=== PATIENT | male | born 1945 | race Caucasian/White ===

== ENCOUNTER 2018-11-08 08:36 | Observation (INO) | payer MEDICARE ==
[~2018-11-08] VITALS: Ht 177.8 cm; Wt 106.6 kg
--- NOTE | 2018-11-08 08:37 | ER Report ---
History and Physical Time Seen By MD: 08:37 HPI/ROS CHIEF COMPLAINT: Shortness of breath, hypoxia HISTORY OF PRESENT ILLNESS: Patient is a 73-year-old male here with complaints of shortness breath, found to be profoundly hypoxic in the 60s. Patient is originally from [place] however is traveling out here to visit his son at the [place]. Patient reportedly flew into [place] several days ago but only developed significant shortness of breath while driving from [place] to [place]. Patient did have a prior history of a similar episode in the remote past. Denies history of smoking, CHF, COPD. Denies recent history of cough, cold symptoms. REVIEW OF SYSTEMS: Constitutional: No fever, no chills. Eyes: No discharge. ENT: No sore throat. Cardiovascular: No chest pain, no palpitations. Respiratory:+ shorytness of breath at rest Gastrointestinal: No abdominal pain, no vomiting. Genitourinary: No hematuria. Musculoskeletal: No back pain. Skin: No rashes. Neurological: No headache. Allergies: Coded Allergies: No Known Allergies (Verified Allergy, Unknown, 11/08/18) Home Meds Active Scripts Doxycycline Hyclate (DOXYCYCLINE HYCLATE) 100 Mg Tablet, 100 MG PO BID for 7 Days, #14 TAB Prov:SONJA VAUGHAN DO 11/09/18 Cefdinir 300 Mg Cap (OMNICEF 300 MG CAP (OR EQUIV)) 300 Mg Cap, 300 MG PO BID for 7 Days, #20 CAP Prov:PRUITT DESTINEESONJA 11/09/18 Reported Medications Simvastatin (SIMVASTATIN) 40 Mg Tablet, 40 MG PO HS, TAB 11/08/18 Flecainide Acetate (FLECAINIDE ACETATE) 150 Mg Tablet, 150 MG PO BID 11/08/18 Benazepril Hcl (BENAZEPRIL HCL) 20 Mg Tab, 20 MG PO BID, TAB 11/08/18 Metoprolol Succinate (METOPROLOL SUCCINATE) 50 Mg Tab.er.24h, 2 TAB PO QDAY, TAB 11/08/18 Constitutional Physical Exam General Appearance: The patient is alert, has no immediate need for airway protection and no signs of toxicity. Uncomfortable appearing Eyes: Pupils equal and round no pallor or injection. ENT, Mouth: Mucous membranes are moist. Respiratory: + significant work of breathing, diminished BS b/l with crackles at bases Cardiovascular: Regular rate and rhythm. Gastrointestinal: Abdomen is soft and non tender, no masses, bowel sounds normal. Neurological: No focal deficits Skin: Warm and dry, no rashes. Musculoskeletal: Neck is supple non tender. Extremities are nontender, nonswollen and have full range of motion. DIFFERENTIAL DIAGNOSIS: After history and physical exam differential diagnosis was considered for shortness of breath including but not limited to pulmonary infectious process, COPD, asthma, pulmonary embolus and congestive heart failure. Medical Decision Making Data Points Laboratory Hematology Test 11/08/18 08:59 D-Dimer Quantitative (PE/DVT) 1.29 ug/ml (0-0.50) Blood Gas Patient Temperature 98.1 DEGREES Venous Blood pH 7.30 (7.31-7.41) Venous Blood Partial Pressure CO2 41 mmHg Venous Blood Partial Pressure O2 54 mmHg Venous Blood HCO3 24 mmol/L Venous Blood Oxygen Saturation 88 % Venous Blood Base Excess -1 mmol/L Oxygen Liters/Minute 4liters Chemistry Test 11/08/18 08:59 D-Dimer Quantitative (PE/DVT) 1.29 ug/ml (0-0.50) Blood Gas Patient Temperature 98.1 DEGREES Venous Blood pH 7.30 (7.31-7.41) Venous Blood Partial Pressure CO2 41 mmHg Venous Blood Partial Pressure O2 54 mmHg Venous Blood HCO3 24 mmol/L Venous Blood Oxygen Saturation 88 % Venous Blood Base Excess -1 mmol/L Oxygen Liters/Minute 4liters Coagulation Test 11/08/18 08:59 D-Dimer Quantitative (PE/DVT) 1.29 ug/ml EKG/Imaging Imaging PATIENT NAME: Lan Fraga : 1945 MR: [id number] V: [id number] EXAM DATE: ORDERING PHYSICIAN: STACY RIZO TECHNOLOGIST: Location: [facility] Patient: Lan Fraga : 1945 Visit/Account:[id number] Date of Sevice: 11/08/2018 CT angiogram chest with contrast Indication: Short of breath., elevated dimer, hypoxia Comparison: None available. Technique: Axial CT images are obtained through the chest after administration of 90 mL Isovue 370 IV contrast. Reformatted coronal and sagittal images were reviewed as well as coronal MIP images. One of the following dose optimization techniques was utilized in the performance of this exam: automated exposure control; adjustment of the mA and/or kV according to patient size; or use of iterative reconstruction technique. Specific details can be referenced in the facility?s radiology CT exam operational policy. FINDINGS: There is mild enlargement of the heart. Extensive coronary arterial calcificat ions are present. And aortic valve calcifications are noted. There is no filling defect seen within the pulmonary arterial system. In lung windows, there are patchy alveolar opacities present within the upper lobes bilaterally There are small bilateral pleural effusions present with associated atelectasis There is a small moderate hiatal hernia present. Visualized thoracic spine is unremarkable. The vertebral body heights are well maintained. No acute alignment abnormality The gallbladder is surgically absent. IMPRESSION: 1. No evidence of pulmonary embolus. 2. Patchy alveolar opacities present within the upper lobes bilaterally. Blastic considerations are infectious versus inflammatory process. 3. Small bilateral pleural effusions ED Course/Re-evaluation ED Course Patient is a 73-year-old male here from out of town with profound shortness breath while driving from [place] to [place]. Patient was found to have bilateral patchy opacities in the lung mcmanus with diminished breath sounds, severe hypoxia at time of arrival as confirmed with CT imaging. Patient likely had a component of altitude-related pulmonary edema, CHF exacerbation. I discussed the patient with the on-call hospitalist who admitted for further t reatment and care. Patient was stable at time of admission. Decision to Disposition Date: Nov 08, 2018 Decision to Disposition Time: 10:56 Depart Departure Latest Vital Signs Impression: Primary Impression: Dyspnea Additional Impression: Hypoxia Condition: Improved Disposition: Admitted from ER New Scripts Doxycycline Hyclate (DOXYCYCLINE HYCLATE) 100 Mg Tablet 100 MG PO BID for 7 Days, #14 TAB Prov: SONJA VAUGHAN DO 11/09/18 Cefdinir 300 Mg Cap (OMNICEF 300 MG CAP (OR EQUIV)) 300 Mg Cap 300 MG PO BID for 7 Days, #20 CAP Prov: SONJA VAUGHAN DO 11/09/18 Problem Qualifiers STACY RIZO DO Nov 08, 2018 08:37
[2018-11-08 09:13] LABS: PLATELET COUNT, AUTOMATED 142 K/uL (150-450)
--- NOTE | 2018-11-08 09:24 | RADIOLOGY IMAGING REPORT ---
FACILITY: [facility] - [place] PATIENT NAME: Lan Fraga : 1945 MR: [id number] V: [id number] EXAM DATE: ORDERING PHYSICIAN: STACY RIZO TECHNOLOGIST: Location: [facility] [place] Patient: Lan Fraga : 1945 Visit/Account:[id number] Date of Sevice: 11/08/2018 CHEST PA LAT INDICATION: RESP DISTRESS COMPARISON: None available FINDINGS: Heart size within normal limits. Central airway thickening is present. There are hazy alveolar opacities present within the right uppe r lobe. Mildly increased interstitial prominence is noted within the right lower lobe. There is no pneumothorax or pleural effusion. IMPRESSION: 1. Hazy predominantly alveolar opacities and central airway thickening are present. Findings may repr esent infectious or inflammatory pneumonitis Report Dictated By: Ventura Womack at 11/08/2018 9:18 AM Report E-Signed By: Ventura Womack at 11/08/2018 9:19 AM WSN:[id number]
--- NOTE | 2018-11-08 09:47 | EKG ---
FACILITY: [facility] - [place] PATIENT NAME: HERMANN OMER : [id number] MR: [id number] V: [id number] EXAM DATE: ORDERING PHYSICIAN: STACY RIZO TECHNOLOGIST: Test Reason : SOB Blood Pressure : / mmHG Vent. Rate : 059 BPM Atrial Rate : 059 BPM P-R Int : 184 ms QRS Dur : 124 ms QT Int : 484 ms P-R-T Axes : 077 036 023 degrees QTc Int : 479 ms Sinus bradycardia Nonspecific interventricular conduction delay Artifact in several leads - repeat if needed No previous ECGs available Confirmed by POORNIMA GONZALEZ ([id number]) on 11/08/2018 12:28:17 PM Referred By: Confirmed By:POORNIMA GONZALEZ
[2018-11-08] MEDS ORDERED: NS(*) 0.9% 50 ML BAG 50 ML ONE (10:05)
[2018-11-08] MEDS ORDERED: IOPAMIDOL 76% 150 ML INFUS BTL 150 ML ONE (10:05)
--- NOTE | 2018-11-08 10:47 | RADIOLOGY IMAGING REPORT ---
FACILITY: [facility] [place] PATIENT NAME: Lan Fraga : 1945 MR: [id number] V: [id number] EXAM DATE: ORDERING PHYSICIAN: STACY RIZO TECHNOLOGIST: Location: [facility] Patient: Lan Fraga : 1945 Visit/Account:[id number] Date of Sevice: 11/08/2018 CT angiogram chest with contrast Indication: Short of breath., elevated dimer, hypoxia Comparison: None available. Technique: Axial CT images are obtained through the chest after administration of 90 mL Isovue 370 IV contrast. Reformatted coronal and sagittal images were reviewed as well as coronal MIP images. One of the following dose optimization techniques was utilized in the performance of this exam: auto mated exposure control; adjustment of the mA and/or kV according to patient size; or use of iterative reconstruction technique. Specific details can be referenced in the facility?s radiology CT exam ope rational policy. FINDINGS: There is mild enlargement of the heart. Extensive coronary arterial calcifications are present. And a ortic valve calcifications are noted. There is no filling defect seen within the pulmonary arterial system. In lung windows, there are patchy alveolar opacities present within the upper lobes bilaterally There are small bilateral pleural effusions present with associated atelectasis There is a small moderate hiatal hernia present. Visualized thoracic spine is unremarkable. The vertebral body heights are well maintained. No acute a lignment abnormality The gallbladder is surgically absent. IMPRESSION: 1. No evidence of pulmonary embolus. 2. Patchy alveolar opacities present within the upper lobes bilaterally. Blastic considerations are i nfectious versus inflammatory process. 3. Small bilateral pleural effusions Report Dictated By: Ventura Womack at 11/08/2018 10:31 AM Report E-Signed By: Ventura Womack at 11/08/2018 10:43 AM WSN:[id number]
[2018-11-08 12:48] VITALS: BP 153/92
[2018-11-08] MEDS ORDERED: ACETAMINOPHEN 325 MG TAB PO PRN (13:05)
[2018-11-08] MEDS ORDERED: INSULIN HUM LISPRO 100 UN/ML 3 ML VIAL SUBQ PRN (13:05)
[2018-11-08] MEDS ORDERED: FLUSH 10 ML SYR IVP PRN (13:05)
[2018-11-08] MEDS ORDERED: BENA20TA64 PO (13:11)
[2018-11-08] MEDS ORDERED: SIMV-54 PO (13:11)
[2018-11-08] MEDS ORDERED: FLEC150T14 PO (13:11)
[2018-11-08] MEDS ORDERED: METO50TA19 PO (13:11)
--- NOTE | 2018-11-08 13:28 | History & Physical ---
History of Present Illness Chief Complaint Short of breath History of Present Illness 73yo male with PMHx significant for type 2 DM, atrial fibrillation on flecainide, HTN. He lives in [place] and flew to [place], [place] ([address]ft) 2 days ago and then drove to [place], [place] ([address]ft). He states he had increasing dyspnea with decreased activity tolerance through the day on the drive to [place]. He had a slight cough without sputum. No fevers/chills. No CP, heart racing, or palpitations. No orthopnea/PND. No edema. No leg pain. No GI/ complaints. He was evaluated in the ER and found to be hypoxic with normal WBC, no fever, elevated BNP, normal troponin, elevated d-dimer. His CT pulmonary angiogram shows bilateral patchy infiltrates. No PE were seen. EKG shows sinus bradycardia, but no acute appearing ST-T findings. He was recommended for a dmission. History Problems: (1) Atrial fibrillation Status: Chronic (2) HTN (hypertension) Status: Chronic (3) Type 2 diabetes mellitus Status: Chronic (4) History of knee replacement procedure of right knee (5) History of knee replacement procedure of left knee (6) History of cholecystectomy Home Meds Reported Medications Simvastatin (SIMVASTATIN) 40 Mg Tablet, 40 MG PO HS, TAB 11/08/18 Flecainide Acetate (FLECAINIDE ACETATE) 150 Mg Tablet, 150 MG PO BID 11/08/18 Benazepril Hcl (BENAZEPRIL HCL) 20 Mg Tab, 20 MG PO BID, TAB 11/08/18 Metoprolol Succinate (METOPROLOL SUCCINATE) 50 Mg Tab.er.24h, 2 TAB PO QDAY, TAB 11/08/18 Allergies: Coded Allergies: No Known Allergies (Verified Allergy, Unknown, 11/08/18) Patient History: FH: HTN (hypertension) MOTHER FH: dementia FATHER Hx Alcohol Use: No Hx Substance Use Disorder: No Review of Systems Constitutional: No Fever, No Chills, No Night Sweats Neurological: Weakness; No Syncope Eyes: No Vision Change, No Loss of Vision ENT: No Hearing Loss Cardiovascular: No Chest Pain, No Palpitations Respiratory: Shortness of Breath, Cough; No Wheezing Gastrointestinal: No Nausea, No Vomiting, No Diarrhea, No Hematemesis, No Hematochezia, No Melena, No Abdominal Pain Genitourinary: No Dysuria, No Hematuria Musculoskeletal: No Pain Psychiatric: No Depression Exam Vital Signs Vital Signs Date Time Temp Pulse Resp B/P (MAP) Pulse Ox O2 Delivery O2 Flow Rate FiO2 11/08/18 12:48 52 153/92 (112) 95 Nasal Cannula 4.0 11/08/18 11:46 12 11/08/18 08:48 99.5 General Appearance: Alert, Awake Neuro: No Gross deficits Eyes: PERRLA ENT: Oropharynx Clear Neck: No Masses Cardiovascular: Other (Regular slightly bradycardic no murmur no S3 or S4 noted) Respiratory: Other (few fine rales midlung mcmanus bilaterally/no wheezes) Chest: No Tenderness GI: Abd Soft and Non-Tender (obese/BS present) : No CVA Tenderness Lymph: No Adenopathy Extremities: Warm, Perfused, Other (no significant edema noted/negative Alma's bilaterally) Integumentary: Other (no skin lesions noted) Psych: Alert & Oriented X3 Medical Decision Making Data Points Result Diagram: 11/08/18 0859 11/08/18 0859 Item Value Date Time Albumin 4.0 g/dl 11/08/18 0859 Total Protein 7.0 g/dl 11/08/18 0859 B-Type Natriuretic Peptide 390 pg/ml H 11/08/18 0859 Troponin I < 0.012 ng/ml 11/08/18 0859 Alkaline Phosphatase 69 U/L 11/08/18 0859 Alanine Aminotransferase (ALT/SGPT) 29 U/L 11/08/18 0859 Aspartate Amino Transf (AST/SGOT) 22 U/L 11/08/18 0859 Total Bilirubin 1.4 mg/dl H 11/08/18 0859 Calcium Level 8.6 mg/dl 11/08/18 0859 D-Dimer Quantitative (PE/DVT) 1.29 ug/ml H 11/08/18 0859 Oxygen Liters/Minute 4liters 11/08/18 0859 Venous Blood Base Excess -1 mmol/L 11/08/18 0859 Venous Blood Oxygen Saturation 88 % 11/08/18 0859 Venous Blood HCO3 24 mmol/L 11/08/18 0859 Venous Blood Partial Pressure O2 54 mmHg 11/08/18 0859 Venous Blood Partial Pressure CO2 41 mmHg 11/08/18 0859 Venous Blood pH 7.30 L 11/08/18 0859 Blood Gas Patient Temperature 98.1 DEGREES 11/08/18 0859 EKG / Imaging EKG Interpretation PATIENT NAME: HERMANN FRAGA : [id number] MR: [id number] V: [id number] EXAM DATE: ORDERING PHYSICIAN: STACY RIZO TECHNOLOGIST: Test Reason : SOB Blood Pressure : / mmHG Vent. Rate : 059 BPM Atrial Rate : 059 BPM P-R Int : 184 ms QRS Dur : 124 ms QT Int : 484 ms P-R-T Axes : 077 036 023 degrees QTc Int : 479 ms Sinus bradycardia Nonspecific interventricular conduction delay Artifact in several leads - repeat if needed No previous ECGs available Confirmed by POORNIMA GONZALEZ ([id number]) on 11/08/2018 12:28:17 PM Referred By: Confirmed By:POORNIMA GONZALEZ Imaging PATIENT NAME: Hermann Fraga : 1945 MR: [id number] V: [id number] EXAM DATE: [id number] ORDERING PHYSICIAN: STACY RIZO TECHNOLOGIST: Location: [facility] [place] Patient: Hermann Fraga : 1945 Visit/Account:[id number] Date of Sevice: 11/08/2018 CT angiogram chest with contrast Indication: Short of breath., elevated dimer, hypoxia Comparison: None available. Technique: Axial CT images are obtained through the chest after administration of 90 mL Isovue 370 IV contrast. Reformatted coronal and sagittal images were reviewed as well as coronal MIP images. One of the following dose optimization techniques was utilized in the performance of this exam: automated exposure control; adjustment of the mA and/or kV according to patient size; or use of iterative reconstruction technique. Specific details can be referenced in the facility?s radiology CT exam operational policy. FINDINGS: There is mild enlargement of the heart. Extensive coronary arterial calcifications are present. And aortic valve calcifications are noted. There is no filling defect seen within the pulmonary arterial system. In lung windows, there are patchy alveolar opacities present within the upper lobes bilaterally There are small bilateral pleural effusions present with associated atelectasis There is a small moderate hiatal hernia present. Visualized thoracic spine is unremarkable. The vertebral body heights are well maintained. No acute alignment abnormality The gallbladder is surgically absent. IMPRESSION: 1. No evidence of pulmonary embolus. 2. Patchy alveolar opacities present within the upper lobes bilaterally. Blastic considerations are infectious versus inflammatory process. 3. Small bilateral pleural effusions Report Dictated By: Ventura Womack at 11/08/2018 10:31 AM Report E-Signed By: Ventura Womack at 11/08/2018 10:43 AM WSN:[id number] PATIENT NAME: Hermann Fraga : 1945 MR: [id number] V: [id number] EXAM DATE: ORDERING PHYSICIAN: STACY RIZO TECHNOLOGIST: Location: [facility] [place] Patient: Hermann Fraga : 1945 Visit/Account:[id number] Date of Sevice: 11/08/2018 CHEST PA LAT INDICATION: RESP DISTRESS COMPARISON: None available FINDINGS: Heart size within normal limits. Central airway thickening is present. There are hazy alveolar opacities present within the right upper lobe. Mildly increased interstitial prominence is noted within the right lower lobe. There is no pneumothorax or pleural effusion. IMPRESSION: 1. Hazy predominantly alveolar opacities and central airway thickening are present. Findings may represent infectious or inflammatory pneumonitis Report Dictated By: Ventura Womack at 11/08/2018 9:18 AM Report E-Signed By: Ventura Womack at 11/08/2018 9:19 AM WSN:[id number] Assessment and Plan Problems: (1) Hypoxia Status: Acute Assessment & Plan: It appears he has pulmonary edema. Clinically, he does not appear to have pneumonia, but it is still a possibility. He could have primary cardiac etiology, but he may also have high altitude pulmonary edema as he came up in [place] 7000ft very quickly (and actually went over 8800ft on his trip into [place]). Will admit, place on oxygen, check serial troponins, monitor, control BP, check echocardiogram. Plan on re-check CXR in 6-8 hours to see if infiltrates changing/resolving. Discussed all of this with the patient and his . They seem to understand very well. (2) Dyspnea Status: Acute Assessment & Plan: Appears to be due to pulmonary edema, suspect high-altitude edema may be the cause. Will evaluate/treat as noted above. (3) Atrial fibrillation Status: Chronic Assessment & Plan: He is in sinus rhythm. It sounds like he has been maintaining sinus rhythm very well on the flecainide. Will watch on monitor. He has not been on anticoagulation "for a long time now". He is on metoprolol for rate control and HTN. (4) HTN (hypertension) Status: Chronic Assessment & Plan: Will continue his benazepril and metoprolol. Watch closely. (5) Type 2 diabetes mellitus Status: Chronic Assessment & Plan: ADA diet, continue his metformin. Watch glucoses and use SSI as needed. Venous Thromboembolism Antithrombotics Is Pt On Any Antithrombotics?: Yes Exam Sepsis Risk: No Definite Risk POORNIMA GONZALEZ MD Nov 08, 2018 13:28
[2018-11-08 15:09] VITALS: BP 151/83
[2018-11-08] MEDS ORDERED: NS(*) 0.9% 1000 ML BAG 1,000 ML IV PRN (15:45)
--- NOTE | 2018-11-08 15:56 | EKG ---
FACILITY: [facility] PATIENT NAME: HERMANN OMER : [id number] MR: [id number] V: [id number] EXAM DATE: ORDERING PHYSICIAN: POORNIMA GONZALEZ TECHNOLOGIST: UNA Arellano Reason : Blood Pressure : / mmHG Vent. Rate : 058 BPM Atrial Rate : 058 BPM P-R Int : 204 ms QRS Dur : 116 ms QT Int : 494 ms P-R-T Axes : 079 061 031 degrees QTc Int : 484 ms Sinus bradycardia Nonspecific interventricular conduction delay Prolonged QT Abnormal ECG When compared with ECG of 08-NOV-2018 08:46, No significant change was found Confirmed by POORNIMA GONZALEZ ([id number]) on 11/09/2018 5:27:05 AM Referred By: LISA Confirmed By:POORNIMA GONZALEZ
[2018-11-08 18:48] VITALS: BP 163/90
--- NOTE | 2018-11-08 19:05 | RADIOLOGY IMAGING REPORT ---
FACILITY: [facility] PATIENT NAME: Lan Fraga : 1945 MR: [id number] V: [id number] EXAM DATE: ORDERING PHYSICIAN: POORNIMA GONZALEZ TECHNOLOGIST: Location: [facility] Patient: Lan Fraga : 1945 Visit/Account:[id number] Date of Sevice: 11/08/2018 CHEST SINGLE AP HISTORY: Shortness of breath. COMPARISON: 11/08/2018 at 9:09 AM. FINDINGS: Lines/tubes: None. Lungs/pleura: Stable hazy opacities in the lungs. No pneumothorax. Heart: Negative. Mediastinum: Negative. Bony structures/body wall: Negative. IMPRESSION: Stable hazy opacities in the lungs. Report Dictated By: Sundar Gomez MD at 11/08/2018 6:59 PM Report E-Signed By: Sundar Gomez MD at 11/08/2018 7:01 PM WSN:[id number]
[2018-11-08] MEDS ORDERED: diphenhydrAMINE 25 MG CAP PO PRN (20:30)
[2018-11-08] MEDS ORDERED: LEVALBUTEROL 0.63 MG/3 ML NEB NEB PRN (20:30)
[2018-11-08] MEDS ORDERED: MELATONIN 3 MG TAB PO PRN (20:30)
[2018-11-08] MEDS ORDERED: FUROSEMIDE 20 MG/2 ML VIAL IVP ONE (20:35)
[2018-11-08] MEDS: BENAZEPRIL HCL 20 MG TAB PO SCH (20:44)
[2018-11-08] MEDS: FLECAINIDE ACETATE 100 MG TAB PO SCH (20:46)
[2018-11-08] MEDS ORDERED: cefTRIAXone 1 GM VIAL IVP SCH (21:00)
[2018-11-08] MEDS ORDERED: SIMVASTATIN 40 MG TAB PO SCH (21:00)
[2018-11-08] MEDS ORDERED: NS 0.9% ONE (21:13)
[2018-11-08] MEDS ORDERED: NS(*) 0.9% 250 ML BAG 250 ML ONE (21:16)
[2018-11-08] MEDS: DOXYCYCLINE HYCL 100 MG VIAL 100 MG in NS(*) 0.9% 250 ML BAG 250 ML IV SCH (22:20)
[2018-11-08 23:00] VITALS: BP 165/96
[2018-11-09 04:26] VITALS: BP 140/78
[2018-11-09 05:59] LABS: PLATELET COUNT, AUTOMATED 126 K/uL (150-450)
[2018-11-09 07:14] VITALS: BP 152/85
--- NOTE | 2018-11-09 08:00 | RADIOLOGY IMAGING REPORT ---
FACILITY: [facility] [place] PATIENT NAME: Lan Fraga : 1945 MR: [id number] V: [id number] EXAM DATE: ORDERING PHYSICIAN: POORNIMA GONZALEZ TECHNOLOGIST: Location: [facility] [place] Patient: Lan Fraga : 1945 Visit/Account:[id number] Date of Sevice: 11/09/2018 CHEST SINGLE AP HISTORY: Hypoxia. COMPARISON: 11/08/2018. FINDINGS: Lines/tubes: None. Lungs/pleura: Stable hazy opacities in the lungs. No definite pleural effusion or pneumothorax. Heart: Negative. Mediastinum: Negative. Bony structures/body wall: Negative. IMPRESSION: Stable hazy opacities in the lungs. No significant change compared with 11/08/2018. Report Dictated By: Sundar Gomez MD at 11/09/2018 7:54 AM Report E-Signed By: Sundar Gomez MD at 11/09/2018 7:55 AM WSN:[id number]
[2018-11-09] MEDS: FLECAINIDE ACETATE 100 MG TAB PO SCH (08:30)
[2018-11-09] MEDS: BENAZEPRIL HCL 20 MG TAB PO SCH (08:30)
[2018-11-09] MEDS: DOXYCYCLINE HYCL 100 MG VIAL 100 MG in NS(*) 0.9% 250 ML BAG 250 ML IV SCH (08:30)
[2018-11-09 08:44] VITALS: Ht 177.8 cm; Wt 106.6 kg
[2018-11-09] MEDS ORDERED: ENOXAPARIN 40 MG/0.4ML SYR SC SCH (09:00)
[2018-11-09] MEDS ORDERED: METOPROLOL SUCC XL 50 MG TABCR 50 MG TAB.ER.24H PO SCH (09:00)
--- NOTE | 2018-11-09 09:41 | Antimicrobial Stewardship ---
Antimicrobial Stewardship Empiricly appropriate: Yes (Ceftriaxone + DOxycycline) Significant PMH: Yes (Afib, HTN, DM2) Support empiric regimen: Yes (Doxycycline + Ceftriaxone) IV to PO Opportunity: Yes Determine cumulative duration: Today is day 2 Determine standard duration: Duration 7 days Comment 73 yo M from [place] who drove up to [place] from [place], not feeling well at all, presented to the ED with SOB. Tmax afeb WBC wnl Scr 0.7 Lactate 2.2 Oxygen 4 L - no oxygen at baseline, will need O2 to fly back to [place] Chest Xray- possible infectious pneumonitis CTA - BL upper lobe opacities Doxycycline 100mg IV BID Ceftriaxone 1g iV q24h Plan to switch to oral antibiotics to complete a total of 7 days for pneumonia. Doxycycline 100mg po BID and Omnicef 300mg po BID. Annamarie Chun, PharmD, [facility] ANNAMARIE CHUN Nov 09, 2018 09:41
[2018-11-09] MEDS ORDERED: DOXY-179 PO (10:37)
[2018-11-09] MEDS ORDERED: CEF300 PO (10:37)
--- NOTE | 2018-11-09 10:48 | Hospitalist Depart ---
Discharge Summary Reason for Hosp/Final Diag: (1) Hypoxia Status: Acute Hospital Course & Plan: It appears he has pulmonary edema but trial of lasix with no improvement. Clinically, he does not appear to have pneumonia, but it is still a possibility. He could have primary cardiac etiology, but he may also have high altitude pulmonary edema as he came up in altitude [place] 7000ft very quickly (and actually went over 8800ft on his trip into [place]). Serial troponin negative, ECHO with grade 3 diastolic disfunction and pulmonary hypertension. Cefdinir and doxycycline prescribed to complete course (2) Dyspnea Status: Acute Hospital Course & Plan: Appears to be due to pulmonary edema, suspect high- altitude edema may be the cause. Will evaluate/treat as noted above. (3) Atrial fibrillation Status: Chronic Hospital Course & Plan: He is in sinus rhythm. It sounds like he has been main taining sinus rhythm very well on the flecainide. (4) HTN (hypertension) Status: Chronic Hospital Course & Plan: Will continue his benazepril and metoprolol. Watch closely. (5) Type 2 diabetes mellitus Status: Chronic Hospital Course & Plan: ADA diet, continue his metformin. Departure Weight (Pounds): 235 Result Diagram: 11/09/1854411/[id number]/18544 Condition: Improved Discharge Instructions Home Meds Active Scripts Doxycycline Hyclate (DOXYCYCLINE HYCLATE) 100 Mg Tablet, 100 MG PO BID for 7 Days, #14 TAB Prov:SONJA VAUGHAN DO 11/09/18 Cefdinir 300 Mg Cap (OMNICEF 300 MG CAP (OR EQUIV)) 300 Mg Cap, 300 MG PO BID for 7 Days, #20 CAP Prov:SONJA VAUGHAN DO 11/09/18 Reported Medications Simvastatin (SIMVASTATIN) 40 Mg Tablet, 40 MG PO HS, TAB 11/08/18 Flecainide Acetate (FLECAINIDE ACETATE) 150 Mg Tablet, 150 MG PO BID 11/08/18 Benazepril Hcl (BENAZEPRIL HCL) 20 Mg Tab, 20 MG PO BID, TAB 11/08/18 Metoprolol Succinate (METOPROLOL SUCCINATE) 50 Mg Tab.er.24h, 2 TAB PO QDAY, TAB 11/08/18 Diet: Diabetic Activity: As Tolerated Venous Thromboembolism Antithrombotics Is Pt On Any Antithrombotics?: Yes SONJA VAUGHAN DO Nov 09, 2018 10:48
[2018-11-09] MEDS ORDERED: CEFDINIR 300 MG CAP PO SCH (21:00)
[2018-11-09] MEDS ORDERED: DOXYCYCLINE HYCL 100 MG TAB PO SCH (21:00)
[2018-11-10] MEDS ORDERED: INFLUENZA VIRUS VAC 0.5ML SYR IM ONLY ONE (13:05)
== END 2018-11-09 10:38 | disposition home or self-care (01) ==
LOC: ER 09:05 → INTOOBSV 11:47 → MED 11:47
PROVIDERS: ADMIT Internal Medicine; ATTEND Internal Medicine
DX: R09.02 Hypoxemia (principal); R00.1 Bradycardia, unspecified; I48.2 Chronic atrial fibrillation; I10 Essential (primary) hypertension; E11.9 Type 2 diabetes mellitus without complications; R06.00 Dyspnea, unspecified
CPT/HCPCS: 36415; 36416; 71045; 71046; 71275; 82803; 82948; 83605; 83880; 84484; 85025; 85379; 93005; 93306; 94640; 96372; 99284; A9270; G0378; J0696; J1650; J1940; J3490; J7030; J7050; J7614; Q0163; Q9967; 82040; 82247; 82310; 82374; 82435; 82565; 82947; 84075; 84132; 84155; 84295; 84450; 84460; 84520